=== PATIENT | female | born 1960 | race Caucasian/White ===

== ENCOUNTER 2021-02-24 15:41 | Emergency (ER) | payer SELFPAY | END 2021-02-24 16:37 | disposition home or self-care (01) | LOC: BURERS 15:47 | DX: K52.9 Noninfective gastroenteritis and colitis, unspecified (principal); I10 Essential (primary) hypertension; F17.210 Nicotine dependence, cigarettes, uncomplicated | CPT/HCPCS: 99406 ==

== ENCOUNTER 2023-09-25 11:58 | Outpatient (CLI) | payer OTHER | END 2023-09-25 11:59 | disposition home or self-care (01) | LOC: BURRAD 11:58 | PROVIDERS: ATTEND Family Medicine | DX: R06.02 Shortness of breath (principal); M79.89 Other specified soft tissue disorders | CPT/HCPCS: 71046 ==

== ENCOUNTER 2024-04-01 17:58 | Emergency (ER) | payer OTHER ==
[2024-04-01] MEDS ORDERED: Bupivacaine 0.5% 10 ML VIAL ONE (18:42)
[2024-04-01] MEDS ORDERED: Penicillin V Potassium 250 MG TAB ONE (18:49)
== END 2024-04-01 18:53 | disposition home or self-care (01) ==
LOC: BURERS 17:58
DX: K08.89 Other specified disorders of teeth and supporting structures (principal); K04.7 Periapical abscess without sinus; I10 Essential (primary) hypertension; J44.9 Chronic obstructive pulmonary disease, unspecified; F17.210 Nicotine dependence, cigarettes, uncomplicated
CPT/HCPCS: 64400; J3490

== ENCOUNTER 2024-09-10 15:04 | Outpatient (CLI) | payer OTHER | END 2024-09-10 15:05 | disposition home or self-care (01) | LOC: BURRAD 15:04 | PROVIDERS: ATTEND Family Medicine | DX: M79.671 Pain in right foot (principal) ==